=== PATIENT | female | born 1960 ===

== ENCOUNTER 2024-01-12 06:54 | Day surgery (SDC) | payer OTHER ==
[~2024-01-12] VITALS: Ht 157.5 cm; Wt 108.9 kg
[~2024-01-12 06:54] MED LIST: CALTRATE 600 +1 EAC1 PO; MIRALAX17 GM PO; PEPCID AC10 MG PO
[2024-01-12] MEDS ORDERED: TYLENOL EXTRA500 MG PO (12:15)
== END 2024-01-12 14:05 | disposition home or self-care (01) ==
LOC: CIR.AMB 06:54
PROVIDERS: ATTEND Obstetrics & Gynecology Gynecology
DX: N85.02 Endometrial intraepithelial neoplasia [EIN] (principal); Z88.6 Allergy status to analgesic agent; J40 Bronchitis, not specified as acute or chronic; H52.10 Myopia, unspecified eye; J32.9 Chronic sinusitis, unspecified

== ENCOUNTER 2024-03-30 11:00 | Inpatient (IN) | payer OTHER ==
[~2024-03-30] VITALS: Ht 157.5 cm; Wt 117.9 kg
[~2024-03-30 11:00] MED LIST changes: +TYLENOL EXTRA500 MG PO
[2024-03-30] MEDS ORDERED: FLONASE16 GM (12:14)
[2024-03-30 12:15] VITALS: BP 137/88
[2024-03-30 12:16] VITALS: BP 95/65
[2024-03-30 12:52] LABS: RH POSITIVE
[2024-04-05] MEDS ORDERED: POVIDONE-IODINE 118 ML BOTT TOP ONE (19:30)
[2024-04-05] MEDS ORDERED: METOCLOPRAMIDE HCL 5 MG/ML VIAL IV ONE (19:30)
[2024-04-05] MEDS ORDERED: CEFAZOLIN SODIUM 1,000 MG VIAL IV ONE (19:30)
[2024-04-05] MEDS ORDERED: HEMOSTATIC MATRIX 1 KIT KIT TOP ONE (20:15)
[2024-04-05] MEDS ORDERED: SUGAMMADEX SODIUM 200 MG/2 ML VIAL IV ONE (20:15)
[2024-04-05] MEDS ORDERED: SURGIFLO APPLICATOR 1 EACH APPL TOP ONE (20:30)
[2024-04-05] MEDS ORDERED: MORPHINE SULFATE 4 MG/ML VIAL IV PRN (20:45)
[2024-04-05] MEDS ORDERED: RINGERS SOLUTION,LACTATED 1,000 ML IV SCH (20:45)
[2024-04-05] MEDS ORDERED: MORPHINE SULFATE 4 MG,MORPHINE SULFATE 2 MG IV PRN (20:45)
[2024-04-05] MEDS ORDERED: ONDANSETRON HCL 2 MG/ML VIAL IV SCH (21:00)
[2024-04-05] MEDS ORDERED: MORPHINE SULFATE 4 MG/ML VIAL IV ONE (23:35)
[2024-04-06] MEDS ORDERED: CEFAZOLIN SODIUM 1,000 MG VIAL IV SCH
[2024-04-06 00:30] VITALS: BP 95/65
[2024-04-06 00:58] LABS: HEMATOCRIT 36.2 % (36.0-45.00); HEMOGLOBIN 11.9 g/dL (12.0-15.00); MEAN CELL VOLUME 83.4 fL (80.00-100.00); MEAN CORPUSCULAR HEMOGLOBIN 27.3 pg (27.00-32.0); MEAN CORPUSCULAR HGB CONC 32.8 g/dl (32.0-36.0); PLATELET COUNT 268 K/uL (150-450); RED BLOOD COUNT 4.34 M/uL (4.00-6.00)
[2024-04-06] MEDS ORDERED: NEURONTIN300 MG PO (07:23)
[2024-04-06] MEDS ORDERED: TYLENOL325 MG PO (07:23)
[2024-04-06] MEDS ORDERED: CIPRO500 MG PO (07:24)
[2024-04-06 08:26] VITALS: BP 113/71
[2024-04-06] MEDS ORDERED: ENOXAPARIN SODIUM 40 MG/0.4 ML SYRINGE SUBCUTANEO SCH (09:00)
== END 2024-04-06 12:20 | disposition home or self-care (01) | DRG 743 ==
LOC: O/R 04-05 06:47 → SURH 04-05 07:00 → OB/GYN 04-05 22:20
PROVIDERS: ADMIT Obstetrics & Gynecology Gynecology; ATTEND Obstetrics & Gynecology Gynecology
PROC: 0UT74ZZ Resection of Bilateral Fallopian Tubes, Percutaneous Endoscopic Approach (ICD-10-PCS; 2024-04-05)
PROC: 0UT24ZZ Resection of Bilateral Ovaries, Percutaneous Endoscopic Approach (ICD-10-PCS; 2024-04-05)
PROC: 0UT94ZZ Resection of Uterus, Percutaneous Endoscopic Approach (ICD-10-PCS; principal; 2024-04-05 07:00)
DX: N85.02 Endometrial intraepithelial neoplasia [EIN] (principal); D27.0 Benign neoplasm of right ovary; Z20.822 Contact with and (suspected) exposure to COVID-19